=== PATIENT | female | born 1950 | race African-American/Black ===

== ENCOUNTER 2017-09-12 12:51 | Inpatient (IN) | payer MEDICARE, MEDICAID ==
[2017-09-12] VITALS (17 sets, daily range): BP systolic 97–144; BP diastolic 61–92
[~2017-09-12] VITALS: Ht 167.6 cm; Wt 100.3 kg
[~2017-09-12 12:51] MED LIST: ACET-2178 PO; ACET-2708 PO; ARAV10 PO; CALC-1098 PO; CYCL30DR EACHEYE; DULO30CA51 PO; DULO60CA63 PO; ERGO500013 PO; FOLI-43 PO; GABA-290 PO; HYDR12.54 PO; HYDR200T35 PO; NAPR-677 PO; NAPR-681 PO; OXYB5SYR2 PO; POLY15DR17 OP; SULF500T8 PO
[2017-09-12] MEDS ORDERED: METRONIDAZOLE 500 MG PREMIX 100 ML IV SCH (13:15)
[2017-09-12] MEDS ORDERED: IPRATROPIUM/ALBUTEROL 0.5-3(2.5)MG/3ML NEB HHN PRN (13:15)
[2017-09-12] MEDS: RIFAMPIN 300MG CAPSULE PO SCH (15:16)
[2017-09-12] MEDS: CEFEPIME 1,000 MG in DEXTROSE 5% WATER 50 ML IV SCH (16:11)
[2017-09-12] MEDS ORDERED: VANCOMYCIN 1500MG in DEXTROSE 5% WATER 250ML IV NR (17:00)
[2017-09-12] MEDS: DEXT 5%/LACTATED RINGERS 1,000 ML IV SCH ×2 (17:15→22:06)
[2017-09-12] MEDS ORDERED: THROMBIN (BOVINE) 5000 UNITS/VIAL TOP ONE (17:46)
[2017-09-12] MEDS ORDERED: NORMAL SALINE 0.9% 10 ML SYR ONE (17:46)
[2017-09-12] MEDS ORDERED: GELATIN SPONGE,COMPRESSED SZ 100 ONE ×2 (17:47→19:41)
[2017-09-12] MEDS ORDERED: BACITRACIN 50,000 UNITS/VIAL ONE (17:47)
[2017-09-12] MEDS ORDERED: LIDOCAINE HCL/EPINEPHRINE 1%-EPI 1:100,000 20 ML VIAL ONE ×2 (17:47→19:40)
[2017-09-12] MEDS ORDERED: DEXAMETHASONE 10 MG/ML VIAL IV NR (17:48)
[2017-09-12 18:29] LABS: HEMATOCRIT 30.1 % (36.0-48.0); HEMOGLOBIN 10.1 g/dL (12.0-16.0); MEAN CORPUSCULAR HEMOGLOBIN 29.8 pg (28.0-32.0); MEAN CORPUSCULAR VOLUME 89.1 fL (81.0-99.0); PLATELET 189 x1000/uL (130-400); RED BLOOD CELL COUNT 3.38 mill/uL (4.2-5.4); RED CELL DISTRIBUTION WIDTH 15.8 % (11.6-14.6)
[2017-09-12] MEDS ORDERED: IPRATROPIUM/ALBUTEROL 0.5-3(2.5)MG/3ML NEB INH PRN (18:30)
[2017-09-12] MEDS ORDERED: DOCUSATE SODIUM 100MG CAPSULE PO PRN (18:30)
[2017-09-12] MEDS ORDERED: MAGNESIUM/ALUMINUM HYDROXIDE/SIMETHICONE 30ML UDC PO PRN (18:30)
[2017-09-12] MEDS ORDERED: NA PHOS,M-B/NA PHOS,DI-BA ENEMA 118ML PR PRN (18:30)
[2017-09-12] MEDS ORDERED: ONDANSETRON HCL 4MG/2ML VIAL IV PRN (18:30)
[2017-09-12 18:35] LABS: CHLORIDE 103 mEq/L (98-107)
[2017-09-12 18:36] LABS: INR 1.1
[2017-09-12] MEDS ORDERED: PROPOFOL 200MG/20ML VIAL IV ONE (18:52)
[2017-09-12] MEDS ORDERED: ROCURONIUM BROMIDE 10MG/ML VIAL 5ML IV ONE (18:59)
[2017-09-12] MEDS ORDERED: FENTANYL CITRATE/PF 50MCG/ML 2ML VIAL ONE (19:20)
[2017-09-12] MEDS ORDERED: LIDOCAINE HCL/PF 1% 10 MG/ML 5ML VIAL ONE (19:57)
[2017-09-12] MEDS ORDERED: SUCCINYLCHOLINE CHLORIDE 200MG/10ML VIAL IV ONE (19:57)
[2017-09-12] MEDS ORDERED: DEXAMETHASONE 4MG/ML 1ML VIAL IV SCH (20:00)
[2017-09-12] MEDS ORDERED: NICARDIPINE 100 MG in SODIUM CHLORIDE 0.9% 60 ML IV PRN (20:30)
[2017-09-12] MEDS: IPRATROPIUM/ALBUTEROL 0.5-3(2.5)MG/3ML NEB HHN SCH (20:55)
[2017-09-12] MEDS ORDERED: PROPOFOL 10MG/ML 100ML 100 ML IV PRN (21:45)
[2017-09-12 21:50] LABS: BG BASE EXCESS -1.6 mmol/L (-2.0-2.0); BG CARBOXYHEMOGLOBIN 0.3 % (0.5-1.5); BG DEOXYHEMOGLOBIN 0.3 % (0.0-5.0); BG FRACTION INSPIRED OXYGEN 100; BG HCO3 ACT 21.9 mmol/L (22.0-26.0); BG OXYGEN SATURATION 99.7 % (92.0-98.5); BG OXYHEMOGLOBIN 99.4 % (94.0-97.0); BG PCO2 32.7 mmHg (35.0-45.0); BG PH 7.444 (7.350-7.450); BG PO2 477.6 mmHg (75.0-100.0); BG SAMPLE SITE RIGHT RADIAL; BG TIDAL VOLUME(mL) 600 mL; BG TOTAL HEMOGLOBIN 10.7 g/dL (12.0-18.0); BG VENT MODE VENT - A/C; BG VENT RATE 10 set
[2017-09-13] VITALS (75 sets, daily range): BP systolic 94–135; BP diastolic 46–84
[2017-09-13] MEDS: MORPHINE SULFATE 4 MG/ML CPJ (NOT FOR IM USE) IV PRN ×3 (00:19→13:54)
[2017-09-13] MEDS: IPRATROPIUM/ALBUTEROL 0.5-3(2.5)MG/3ML NEB HHN SCH ×4 (01:36→20:31)
[2017-09-13] MEDS: CEFEPIME 1,000 MG in DEXTROSE 5% WATER 50 ML IV SCH ×2 (03:35→17:01)
[2017-09-13] MEDS ORDERED: VANCOMYCIN 1 G PREMIX 200 ML IV SCH (05:00)
[2017-09-13 06:01] LABS: HEMATOCRIT. 30.2 % (36.0-48.0); HEMOGLOBIN. 9.9 g/dL (12.0-16.0); LYMPHOCYTES % 12.1 % (20.0-50.0); MEAN CORPUSCULAR HEMOGLOBIN 29.6 pg (28.0-32.0); MEAN CORPUSCULAR VOLUME 90.2 fL (81.0-99.0); MEAN PLATELET VOLUME 9.2 fl (7.4-10.4); NEUTROPHILS % 79.9 % (40.0-76.0); PLATELET 175 x1000/uL (130-400); RED BLOOD CELL COUNT 3.35 mill/uL (4.2-5.4); RED CELL DISTRIBUTION WIDTH 15.8 % (11.6-14.6)
[2017-09-13 06:14] LABS: CHLORIDE 105 mEq/L (98-107)
[2017-09-13 07:45] LABS: BG BASE EXCESS 1.8 mmol/L (-2.0-2.0); BG CARBOXYHEMOGLOBIN 0.3 % (0.5-1.5); BG DEOXYHEMOGLOBIN 1.2 % (0.0-5.0); BG FRACTION INSPIRED OXYGEN 40; BG HCO3 ACT 25.7 mmol/L (22.0-26.0); BG METHEMOGLOBIN 0.3 % (0.0-1.5); BG OXYGEN SATURATION 98.8 % (92.0-98.5); BG OXYHEMOGLOBIN 98.2 % (94.0-97.0); BG PCO2 37.4 mmHg (35.0-45.0); BG PH 7.455 (7.350-7.450); BG PO2 159.6 mmHg (75.0-100.0); BG SAMPLE SITE RIGHT BRACHIAL; BG TIDAL VOLUME(mL) 600 mL; BG TOTAL HEMOGLOBIN 9.9 g/dL (12.0-18.0); BG VENT MODE VENT - A/C; BG VENT RATE 10 set
[2017-09-13] MEDS: RIFAMPIN 300MG CAPSULE PO SCH (08:20)
[2017-09-13] MEDS: DEXT 5%/LACTATED RINGERS 1,000 ML IV SCH ×2 (08:44→17:01)
[2017-09-13] MEDS: PANTOPRAZOLE SODIUM 40 MG/VIAL IV SCH (13:53)
[2017-09-14] VITALS (50 sets, daily range): BP systolic 96–180; BP diastolic 48–147
[2017-09-14] MEDS ORDERED: VANCOMYCIN 1250MG in DEXTROSE 5% WATER 250ML IV SCH ×2
[2017-09-14] MEDS: IPRATROPIUM/ALBUTEROL 0.5-3(2.5)MG/3ML NEB HHN SCH ×5 (03:02→20:54)
[2017-09-14] MEDS: DEXT 5%/LACTATED RINGERS 1,000 ML IV SCH ×3 (03:54→23:20)
[2017-09-14] MEDS: CEFEPIME 1,000 MG in DEXTROSE 5% WATER 50 ML IV SCH ×2 (03:54→15:09)
[2017-09-14] MEDS: RIFAMPIN 300MG CAPSULE PO SCH (08:14)
[2017-09-14] MEDS: MORPHINE SULFATE 4 MG/ML CPJ (NOT FOR IM USE) IV PRN ×2 (08:14→17:43)
[2017-09-14] MEDS: VANCOMYCIN 1 G PREMIX 200 ML IV SCH ×2 (09:42→17:39)
[2017-09-14] MEDS: PANTOPRAZOLE SODIUM 40 MG/VIAL IV SCH (13:09)
[2017-09-14 15:03] LABS: BG CARBOXYHEMOGLOBIN 0.4 % (0.5-1.5); BG DEOXYHEMOGLOBIN 1.8 % (0.0-5.0); BG FRACTION INSPIRED OXYGEN 30; BG OXYGEN SATURATION 98.2 % (92.0-98.5); BG OXYHEMOGLOBIN 97.8 % (94.0-97.0); BG PH 7.505 (7.350-7.450); BG PO2 110.1 mmHg (75.0-100.0); BG PRESSURE SUPPORT 8; BG SAMPLE SITE RIGHT BRACHIAL; BG TOTAL HEMOGLOBIN 12.7 g/dL (12.0-18.0); BG VENT MODE VENT - CPAP
[2017-09-14] MEDS ORDERED: RACEPINEPHRINE 2.25% 0.5ML NEB VIAL HHN SCH (15:45)
[2017-09-14 16:51] LABS: BASOPHILS % 0.2 % (0.0-2.0); EOSINOPHILS % 2.3 % (0.0-5.0); HEMATOCRIT. 30.4 % (36.0-48.0); LYMPHOCYTES % 24.5 % (20.0-50.0); MEAN CORPUSCULAR HEMOGLOBIN 29.5 pg (28.0-32.0); MEAN CORPUSCULAR VOLUME 89.6 fL (81.0-99.0); MEAN PLATELET VOLUME 8.9 fl (7.4-10.4); MONOCYTES % 4.8 % (2.0-8.0); NEUTROPHILS % 68.2 % (40.0-76.0); PLATELET 176 x1000/uL (130-400); RED CELL DISTRIBUTION WIDTH 15.5 % (11.6-14.6)
[2017-09-14 16:56] LABS: CHLORIDE 105 mEq/L (98-107)
[2017-09-14 18:06] LABS: BG BASE EXCESS 3.2 mmol/L (-2.0-2.0); BG CARBOXYHEMOGLOBIN 0.3 % (0.5-1.5); BG DEOXYHEMOGLOBIN 7.7 % (0.0-5.0); BG FRACTION INSPIRED OXYGEN 21; BG HCO3 ACT 26.4 mmol/L (22.0-26.0); BG METHEMOGLOBIN 0.2 % (0.0-1.5); BG OXYGEN SATURATION 92.3 % (92.0-98.5); BG OXYHEMOGLOBIN 91.8 % (94.0-97.0); BG PCO2 35.1 mmHg (35.0-45.0); BG PH 7.494 (7.350-7.450); BG PO2 64.8 mmHg (75.0-100.0); BG SAMPLE SITE RIGHT BRACHIAL; BG TOTAL HEMOGLOBIN 10.4 g/dL (12.0-18.0); BG VENT MODE ROOM AIR
[2017-09-14] MEDS ORDERED: POTASSIUM CHLORIDE INJ 40 MEQ in DEXT 5% WATER 250 ML IV NR (18:30)
[2017-09-15] VITALS (47 sets, daily range): BP systolic 87–153; BP diastolic 40–110
[2017-09-15] MEDS: VANCOMYCIN 1 G PREMIX 200 ML IV SCH ×3 (01:02→17:40)
[2017-09-15] MEDS: IPRATROPIUM/ALBUTEROL 0.5-3(2.5)MG/3ML NEB HHN SCH ×4 (03:01→20:10)
[2017-09-15] MEDS: CEFEPIME 1,000 MG in DEXTROSE 5% WATER 50 ML IV SCH (03:04)
[2017-09-15 08:17] LABS: BG BASE EXCESS 3.3 mmol/L (-2.0-2.0); BG CARBOXYHEMOGLOBIN 0.2 % (0.5-1.5); BG DEOXYHEMOGLOBIN 1.7 % (0.0-5.0); BG FRACTION INSPIRED OXYGEN 28; BG HCO3 ACT 26.3 mmol/L (22.0-26.0); BG METHEMOGLOBIN 0.2 % (0.0-1.5); BG OXYGEN SATURATION 98.3 % (92.0-98.5); BG OXYHEMOGLOBIN 97.9 % (94.0-97.0); BG PCO2 34.1 mmHg (35.0-45.0); BG PH 7.505 (7.350-7.450); BG PO2 121.1 mmHg (75.0-100.0); BG SAMPLE SITE RIGHT BRACHIAL; BG TOTAL HEMOGLOBIN 9.7 g/dL (12.0-18.0); BG VENT MODE NASAL CANNULA
[2017-09-15] MEDS: DEXT 5%/LACTATED RINGERS 1,000 ML IV SCH ×3 (09:15→17:40)
[2017-09-15] MEDS: RIFAMPIN 300MG CAPSULE PO SCH (09:25)
[2017-09-15] MEDS: PANTOPRAZOLE SODIUM 40 MG/VIAL IV SCH (11:55)
[2017-09-15] MEDS: HYDROCODONE/ACETAMINOPHEN 10/325MG TABLET PO PRN (11:56)
[2017-09-15] MEDS ORDERED: POTASSIUM CHLORIDE INJ 40 MEQ in DEXT 5% WATER 250 ML IV ONE (12:00)
[2017-09-15] MEDS: CEPHALEXIN 500MG CAPSULE PO SCH ×2 (17:40→23:08)
[2017-09-16] VITALS (47 sets, daily range): BP systolic 97–149; BP diastolic 52–89
[2017-09-16] MEDS: VANCOMYCIN 1 G PREMIX 200 ML IV SCH ×3 (01:11→18:02)
[2017-09-16] MEDS: IPRATROPIUM/ALBUTEROL 0.5-3(2.5)MG/3ML NEB HHN SCH ×4 (02:03→20:14)
[2017-09-16] MEDS: DEXT 5%/LACTATED RINGERS 1,000 ML IV SCH ×3 (05:11→18:02)
[2017-09-16] MEDS: CEPHALEXIN 500MG CAPSULE PO SCH ×3 (05:11→18:02)
[2017-09-16 05:33] LABS: BASOPHILS % 0.4 % (0.0-2.0); EOSINOPHILS % 6.7 % (0.0-5.0); HEMATOCRIT. 29.9 % (36.0-48.0); HEMOGLOBIN. 9.9 g/dL (12.0-16.0); MEAN CORPUSCULAR HEMOGLOBIN 29.6 pg (28.0-32.0); MEAN CORPUSCULAR VOLUME 89.5 fL (81.0-99.0); MEAN PLATELET VOLUME 8.8 fl (7.4-10.4); NEUTROPHILS % 62.9 % (40.0-76.0); PLATELET 134 x1000/uL (130-400); RED BLOOD CELL COUNT 3.34 mill/uL (4.2-5.4); RED CELL DISTRIBUTION WIDTH 15.7 % (11.6-14.6)
[2017-09-16 05:46] LABS: CHLORIDE 102 mEq/L (98-107)
[2017-09-16] MEDS ORDERED: POTASSIUM CHLORIDE INJ 40 MEQ in DEXT 5% WATER 250 ML IV ONE (08:15)
[2017-09-16] MEDS: KCL 20MEQ/100ML PREMIX 100 ML IV SCH ×3 (09:45→15:56)
[2017-09-16] MEDS: PANTOPRAZOLE SODIUM 40 MG/VIAL IV SCH (11:43)
[2017-09-16] MEDS: RIFAMPIN 300MG CAPSULE PO SCH (11:43)
[2017-09-16] MEDS ORDERED: LIDOCAINE HCL 1% 20ML VIAL (Pyxis) INJ ONE (14:08)
[2017-09-17] VITALS (48 sets, daily range): BP systolic 96–147; BP diastolic 54–82
[2017-09-17] MEDS: CEPHALEXIN 500MG CAPSULE PO SCH ×4 (00:40→17:58)
[2017-09-17] MEDS: IPRATROPIUM/ALBUTEROL 0.5-3(2.5)MG/3ML NEB HHN SCH ×4 (02:07→20:08)
[2017-09-17] MEDS: DEXT 5%/LACTATED RINGERS 1,000 ML IV SCH ×2 (02:30→10:17)
[2017-09-17] MEDS: VANCOMYCIN 1 G PREMIX 200 ML IV SCH ×3 (02:32→17:58)
[2017-09-17 05:32] LABS: BASOPHILS % 0.3 % (0.0-2.0); HEMATOCRIT. 28.9 % (36.0-48.0); HEMOGLOBIN. 9.8 g/dL (12.0-16.0); LYMPHOCYTES % 33.4 % (20.0-50.0); MEAN CORPUSCULAR HEMOGLOBIN 29.9 pg (28.0-32.0); MEAN CORPUSCULAR VOLUME 88.4 fL (81.0-99.0); MEAN PLATELET VOLUME 8.5 fl (7.4-10.4); MONOCYTES % 5.6 % (2.0-8.0); NEUTROPHILS % 54.7 % (40.0-76.0); PLATELET 131 x1000/uL (130-400); RED BLOOD CELL COUNT 3.27 mill/uL (4.2-5.4); RED CELL DISTRIBUTION WIDTH 15.2 % (11.6-14.6)
[2017-09-17 05:38] LABS: CHLORIDE 101 mEq/L (98-107)
[2017-09-17 05:57] LABS: CREATINE KINASE 69 IU/L (26-192)
[2017-09-17] MEDS: RIFAMPIN 300MG CAPSULE PO SCH (08:44)
[2017-09-17] MEDS ORDERED: POTASSIUM CHLORIDE 20MEQ/PACKET PO SCH (10:00)
[2017-09-17] MEDS: PANTOPRAZOLE SODIUM 40 MG/VIAL IV SCH (12:51)
[2017-09-18] VITALS: BP 118/80
[2017-09-18] MEDS: CEPHALEXIN 500MG CAPSULE PO SCH ×5 (00:44→23:07)
[2017-09-18] MEDS: VANCOMYCIN 1 G PREMIX 200 ML IV SCH (01:07)
[2017-09-18] MEDS: IPRATROPIUM/ALBUTEROL 0.5-3(2.5)MG/3ML NEB HHN SCH ×4 (02:36→20:14)
[2017-09-18 04:00] VITALS: BP 117/81
[2017-09-18 08:00] VITALS: BP 114/78
[2017-09-18] MEDS: POTASSIUM CHLORIDE 20MEQ/PACKET PO SCH (09:21)
[2017-09-18] MEDS: RIFAMPIN 300MG CAPSULE PO SCH (09:21)
[2017-09-18 12:00] VITALS: BP 101/57
[2017-09-18] MEDS: NA PHOS,M-B/NA PHOS,DI-BA ENEMA 118ML PR SCH ×2 (13:30→17:54)
[2017-09-18] MEDS: VANCOMYCIN 750 MG PREMIX 150 ML IV SCH ×2 (14:28→22:31)
[2017-09-18] MEDS: PANTOPRAZOLE SODIUM 40 MG/VIAL IV SCH (14:28)
[2017-09-18 15:54] LABS: BASOPHILS % 0.6 % (0.0-2.0); EOSINOPHILS % 4.1 % (0.0-5.0); HEMATOCRIT. 28.2 % (36.0-48.0); HEMOGLOBIN. 9.4 g/dL (12.0-16.0); LYMPHOCYTES % 32.4 % (20.0-50.0); MEAN CORPUSCULAR HEMOGLOBIN 29.7 pg (28.0-32.0); MEAN PLATELET VOLUME 8.5 fl (7.4-10.4); MONOCYTES % 3.7 % (2.0-8.0); NEUTROPHILS % 59.2 % (40.0-76.0); PLATELET 131 x1000/uL (130-400); RED BLOOD CELL COUNT 3.17 mill/uL (4.2-5.4); RED CELL DISTRIBUTION WIDTH 15.4 % (11.6-14.6)
[2017-09-18 16:00] VITALS: BP 110/68
[2017-09-18] MEDS: DOCUSATE SODIUM 100MG CAPSULE PO SCH (17:54)
[2017-09-18] MEDS: ACETAMINOPHEN 325MG TABLET PO PRN (17:56)
[2017-09-18 20:00] VITALS: BP 109/62
[2017-09-18 20:47] LABS: CHLORIDE 103 mEq/L (98-107)
[2017-09-18] MEDS: POLYETHYLENE GLYCOL 3350 (17GM) 1 DOSE PACK PO SCH (22:31)
[2017-09-19] VITALS: BP 108/60
[2017-09-19] MEDS: IPRATROPIUM/ALBUTEROL 0.5-3(2.5)MG/3ML NEB HHN SCH ×4 (03:13→20:48)
[2017-09-19 04:00] VITALS: BP 113/67
[2017-09-19] MEDS: CEPHALEXIN 500MG CAPSULE PO SCH ×3 (05:29→17:25)
[2017-09-19] MEDS: VANCOMYCIN 750 MG PREMIX 150 ML IV SCH ×2 (05:29→13:17)
[2017-09-19 07:05] LABS: BASOPHILS % 0.7 % (0.0-2.0); HEMATOCRIT. 27.6 % (36.0-48.0); HEMOGLOBIN. 9.1 g/dL (12.0-16.0); LYMPHOCYTES % 32.2 % (20.0-50.0); MEAN CORPUSCULAR HEMOGLOBIN 29.3 pg (28.0-32.0); MEAN CORPUSCULAR VOLUME 89.2 fL (81.0-99.0); MEAN PLATELET VOLUME 8.8 fl (7.4-10.4); MONOCYTES % 5.3 % (2.0-8.0); NEUTROPHILS % 57.8 % (40.0-76.0); PLATELET 108 x1000/uL (130-400); RED CELL DISTRIBUTION WIDTH 15.6 % (11.6-14.6)
[2017-09-19 08:00] VITALS: BP 112/67
[2017-09-19] MEDS: BISACODYL 10MG SUPP PR SCH (09:00)
[2017-09-19] MEDS: RIFAMPIN 300MG CAPSULE PO SCH (10:42)
[2017-09-19] MEDS: DOCUSATE SODIUM 100MG CAPSULE PO SCH ×2 (10:43→17:25)
[2017-09-19] MEDS: POTASSIUM CHLORIDE 20MEQ/PACKET PO SCH (10:43)
[2017-09-19] MEDS ORDERED: LACTULOSE 20G/30ML UDC PO PRN (11:45)
[2017-09-19 12:00] VITALS: BP 102/67
[2017-09-19] MEDS: PANTOPRAZOLE SODIUM 40 MG/VIAL IV SCH (12:35)
[2017-09-19 16:00] VITALS: BP 108/67
[2017-09-19 20:00] VITALS: BP 124/69
[2017-09-19] MEDS: VANCOMYCIN 1500MG in DEXTROSE 5% WATER 250ML IV SCH (21:32)
[2017-09-19] MEDS: POLYETHYLENE GLYCOL 3350 (17GM) 1 DOSE PACK PO SCH (21:32)
[2017-09-20] VITALS: BP 111/61
[2017-09-20] MEDS: MORPHINE SULFATE 4 MG/ML CPJ (NOT FOR IM USE) IV PRN (00:09)
[2017-09-20] MEDS: IPRATROPIUM/ALBUTEROL 0.5-3(2.5)MG/3ML NEB HHN SCH ×4 (00:32→20:58)
[2017-09-20 04:00] VITALS: BP 101/64
[2017-09-20 08:00] VITALS: BP 123/70
[2017-09-20] MEDS: POTASSIUM CHLORIDE 20MEQ/PACKET PO SCH (08:26)
[2017-09-20] MEDS: BISACODYL 10MG SUPP PR SCH (08:26)
[2017-09-20] MEDS: RIFAMPIN 300MG CAPSULE PO SCH (08:26)
[2017-09-20] MEDS: DOCUSATE SODIUM 100MG CAPSULE PO SCH ×2 (08:26→17:52)
[2017-09-20] MEDS: VANCOMYCIN 1500MG in DEXTROSE 5% WATER 250ML IV SCH ×2 (10:16→23:11)
[2017-09-20] MEDS: PANTOPRAZOLE SODIUM 40 MG/VIAL IV SCH (11:08)
[2017-09-20 12:00] VITALS: BP 125/69
[2017-09-20] MEDS ORDERED: NA PHOS,M-B/NA PHOS,DI-BA ENEMA 118ML PR PRN (14:45)
[2017-09-20] MEDS ORDERED: SORBITOL 70% SOLN 30ML PO NR (15:00)
[2017-09-20] MEDS ORDERED: NA PHOS,M-B/NA PHOS,DI-BA ENEMA 118ML PR NR (15:00)
[2017-09-20 16:00] VITALS: BP 127/72
[2017-09-20 19:25] LABS: CHLORIDE 107 mEq/L (98-107)
[2017-09-20 20:00] VITALS: BP 116/72
[2017-09-20] MEDS: POLYETHYLENE GLYCOL 3350 (17GM) 1 DOSE PACK PO SCH (22:00)
[2017-09-21] VITALS: BP 104/71
[2017-09-21] MEDS: IPRATROPIUM/ALBUTEROL 0.5-3(2.5)MG/3ML NEB HHN SCH ×4 (01:04→21:14)
[2017-09-21 04:00] VITALS: BP 125/76
[2017-09-21 08:00] VITALS: BP 127/79
[2017-09-21] MEDS: DOCUSATE SODIUM 100MG CAPSULE PO SCH ×2 (08:55→17:00)
[2017-09-21] MEDS: BISACODYL 10MG SUPP PR SCH (08:55)
[2017-09-21] MEDS: POTASSIUM CHLORIDE 20MEQ/PACKET PO SCH (08:55)
[2017-09-21] MEDS: RIFAMPIN 300MG CAPSULE PO SCH (08:55)
[2017-09-21] MEDS: HYDROCODONE/ACETAMINOPHEN 10/325MG TABLET PO PRN ×2 (08:59→17:28)
[2017-09-21] MEDS: VANCOMYCIN 1500MG in DEXTROSE 5% WATER 250ML IV SCH (09:00)
[2017-09-21 12:00] VITALS: BP 113/79
[2017-09-21] MEDS: PANTOPRAZOLE SODIUM 40 MG/VIAL IV SCH (12:51)
[2017-09-21 16:00] VITALS: BP 105/69
[2017-09-21 20:00] VITALS: BP 98/68
[2017-09-21] MEDS: POLYETHYLENE GLYCOL 3350 (17GM) 1 DOSE PACK PO SCH (20:30)
[2017-09-21] MEDS: VANCOMYCIN 1250MG in DEXTROSE 5% WATER 250ML IV SCH (20:49)
[2017-09-22] VITALS: BP 106/69
[2017-09-22] MEDS ORDERED: HYDROCODONE/ACETAMINOPHEN 10/325MG TABLET PO PRN (01:00)
[2017-09-22] MEDS: IPRATROPIUM/ALBUTEROL 0.5-3(2.5)MG/3ML NEB HHN SCH ×4 (01:04→21:45)
[2017-09-22 04:00] VITALS: BP 105/69
[2017-09-22 08:00] VITALS: BP 104/69
[2017-09-22] MEDS ORDERED: NA PHOS,M-B/NA PHOS,DI-BA ENEMA 118ML PR SCH (09:00)
[2017-09-22 09:30] LABS: BASOPHILS % 0.8 % (0.0-2.0); HEMATOCRIT. 28.8 % (36.0-48.0); HEMOGLOBIN. 9.5 g/dL (12.0-16.0); LYMPHOCYTES % 42.2 % (20.0-50.0); MEAN CORPUSCULAR HEMOGLOBIN 29.2 pg (28.0-32.0); MEAN CORPUSCULAR VOLUME 88.8 fL (81.0-99.0); MEAN PLATELET VOLUME 7.6 fl (7.4-10.4); PLATELET 190 x1000/uL (130-400); RED BLOOD CELL COUNT 3.24 mill/uL (4.2-5.4); RED CELL DISTRIBUTION WIDTH 15.9 % (11.6-14.6)
[2017-09-22 09:37] LABS: CHLORIDE 105 mEq/L (98-107)
[2017-09-22] MEDS: POTASSIUM CHLORIDE 20MEQ/PACKET PO SCH (09:47)
[2017-09-22] MEDS: VANCOMYCIN 1250MG in DEXTROSE 5% WATER 250ML IV SCH ×2 (09:47→22:17)
[2017-09-22] MEDS: DOCUSATE SODIUM 100MG CAPSULE PO SCH ×2 (09:47→17:21)
[2017-09-22] MEDS: BISACODYL 10MG SUPP PR SCH (09:47)
[2017-09-22] MEDS: RIFAMPIN 300MG CAPSULE PO SCH (09:48)
[2017-09-22] MEDS: PANTOPRAZOLE SODIUM 40 MG/VIAL IV SCH (11:15)
[2017-09-22 16:00] VITALS: BP 103/66
[2017-09-22 20:00] VITALS: BP 111/65
[2017-09-22] MEDS: POLYETHYLENE GLYCOL 3350 (17GM) 1 DOSE PACK PO SCH (21:30)
[2017-09-23] VITALS: BP 95/51
[2017-09-23] MEDS: IPRATROPIUM/ALBUTEROL 0.5-3(2.5)MG/3ML NEB HHN SCH ×2 (02:21→07:26)
[2017-09-23 04:00] VITALS: BP 96/62
[2017-09-23 07:05] LABS: BASOPHILS % 0.6 % (0.0-2.0); EOSINOPHILS % 3.5 % (0.0-5.0); HEMATOCRIT. 28.1 % (36.0-48.0); HEMOGLOBIN. 9.3 g/dL (12.0-16.0); LYMPHOCYTES % 43.2 % (20.0-50.0); MEAN CORPUSCULAR HEMOGLOBIN 29.2 pg (28.0-32.0); MEAN CORPUSCULAR VOLUME 88.3 fL (81.0-99.0); MEAN PLATELET VOLUME 7.7 fl (7.4-10.4); MONOCYTES % 8.5 % (2.0-8.0); NEUTROPHILS % 44.2 % (40.0-76.0); PLATELET 231 x1000/uL (130-400); RED BLOOD CELL COUNT 3.18 mill/uL (4.2-5.4)
[2017-09-23 07:37] LABS: CHLORIDE 105 mEq/L (98-107)
[2017-09-23 08:00] VITALS: BP 103/64
[2017-09-23] MEDS: POTASSIUM CHLORIDE 20MEQ/PACKET PO SCH (08:38)
[2017-09-23] MEDS: RIFAMPIN 300MG CAPSULE PO SCH (08:38)
[2017-09-23] MEDS: DOCUSATE SODIUM 100MG CAPSULE PO SCH ×2 (08:38→17:00)
[2017-09-23] MEDS: VANCOMYCIN 1250MG in DEXTROSE 5% WATER 250ML IV SCH ×2 (08:44→20:36)
[2017-09-23] MEDS: BISACODYL 10MG SUPP PR SCH (08:48)
[2017-09-23 12:00] VITALS: BP 93/57
[2017-09-23] MEDS: PANTOPRAZOLE SODIUM 40 MG/VIAL IV SCH (12:14)
[2017-09-23] MEDS: ACETAMINOPHEN 325MG TABLET PO PRN (13:06)
[2017-09-23 16:00] VITALS: BP 95/64
[2017-09-23 20:00] VITALS: BP 109/69
[2017-09-23] MEDS: POLYETHYLENE GLYCOL 3350 (17GM) 1 DOSE PACK PO SCH (20:36)
[2017-09-24] VITALS: BP 103/65
[2017-09-24 04:00] VITALS: BP 103/65
[2017-09-24] MEDS: ACETAMINOPHEN 325MG TABLET PO PRN (04:01)
[2017-09-24 08:00] VITALS: BP 101/70
[2017-09-24] MEDS: RIFAMPIN 300MG CAPSULE PO SCH (08:25)
[2017-09-24] MEDS: VANCOMYCIN 1250MG in DEXTROSE 5% WATER 250ML IV SCH ×2 (08:26→21:56)
[2017-09-24] MEDS: DOCUSATE SODIUM 100MG CAPSULE PO SCH ×2 (08:26→18:02)
[2017-09-24] MEDS: POTASSIUM CHLORIDE 20MEQ/PACKET PO SCH (08:26)
[2017-09-24 12:00] VITALS: BP 122/76
[2017-09-24] MEDS: PANTOPRAZOLE SODIUM 40 MG/VIAL IV SCH (13:23)
[2017-09-24 16:00] VITALS: BP 139/88
[2017-09-24] MEDS ORDERED: BISACODYL 10MG SUPP PR PRN (16:00)
[2017-09-24 20:00] VITALS: BP 105/72
[2017-09-24] MEDS: POLYETHYLENE GLYCOL 3350 (17GM) 1 DOSE PACK PO SCH (21:56)
[2017-09-24] MEDS: LACTULOSE 20G/30ML UDC PO SCH ×2 (21:56→22:00)
[2017-09-25] VITALS: BP 104/62
[2017-09-25 04:00] VITALS: BP 101/59
[2017-09-25] MEDS: ACETAMINOPHEN 325MG TABLET PO PRN (07:28)
[2017-09-25 08:00] VITALS: BP 118/72
[2017-09-25] MEDS: VANCOMYCIN 1250MG in DEXTROSE 5% WATER 250ML IV SCH ×2 (09:19→21:31)
[2017-09-25] MEDS: POTASSIUM CHLORIDE 20MEQ/PACKET PO SCH (09:19)
[2017-09-25] MEDS: RIFAMPIN 300MG CAPSULE PO SCH (09:20)
[2017-09-25] MEDS: DOCUSATE SODIUM 100MG CAPSULE PO SCH ×2 (09:20→17:39)
[2017-09-25 12:00] VITALS: BP 119/74
[2017-09-25] MEDS: PANTOPRAZOLE SODIUM 40 MG/VIAL IV SCH (13:24)
[2017-09-25 16:00] VITALS: BP 118/67
[2017-09-25 20:00] VITALS: BP 110/78
[2017-09-25] MEDS: POLYETHYLENE GLYCOL 3350 (17GM) 1 DOSE PACK PO SCH (21:31)
[2017-09-26] VITALS: BP 114/73
[2017-09-26] MEDS: ACETAMINOPHEN 325MG TABLET PO PRN ×4 (00:37→23:43)
[2017-09-26 04:00] VITALS: BP 99/62
[2017-09-26 08:00] VITALS: BP 122/75
[2017-09-26] MEDS: VANCOMYCIN 1250MG in DEXTROSE 5% WATER 250ML IV SCH ×2 (08:41→21:55)
[2017-09-26] MEDS: DOCUSATE SODIUM 100MG CAPSULE PO SCH ×2 (08:42→16:22)
[2017-09-26] MEDS: RIFAMPIN 300MG CAPSULE PO SCH (08:42)
[2017-09-26] MEDS: POTASSIUM CHLORIDE 20MEQ/PACKET PO SCH (08:44)
[2017-09-26] MEDS: PANTOPRAZOLE SODIUM 40 MG/VIAL IV SCH (12:55)
[2017-09-26 16:00] VITALS: BP 128/64
[2017-09-26 20:00] VITALS: BP 95/54
[2017-09-26] MEDS: POLYETHYLENE GLYCOL 3350 (17GM) 1 DOSE PACK PO SCH (21:55)
[2017-09-26] MEDS: LACTULOSE 20G/30ML UDC PO SCH (21:55)
[2017-09-27] VITALS: BP 135/69
[2017-09-27 04:00] VITALS: BP 110/76
[2017-09-27] MEDS: ACETAMINOPHEN 325MG TABLET PO PRN ×3 (05:50→22:19)
[2017-09-27 08:00] VITALS: BP 100/62
[2017-09-27] MEDS: DOCUSATE SODIUM 100MG CAPSULE PO SCH ×2 (08:37→18:08)
[2017-09-27] MEDS: RIFAMPIN 300MG CAPSULE PO SCH (08:38)
[2017-09-27] MEDS: VANCOMYCIN 1250MG in DEXTROSE 5% WATER 250ML IV SCH ×2 (08:38→21:05)
[2017-09-27] MEDS: POTASSIUM CHLORIDE 20MEQ/PACKET PO SCH (08:38)
[2017-09-27 12:00] VITALS: BP 110/69
[2017-09-27] MEDS: PANTOPRAZOLE SODIUM 40 MG/VIAL IV SCH (12:36)
[2017-09-27 16:00] VITALS: BP 108/66
[2017-09-27 20:00] VITALS: BP 120/60
[2017-09-27] MEDS: POLYETHYLENE GLYCOL 3350 (17GM) 1 DOSE PACK PO SCH (21:50)
[2017-09-27] MEDS: LACTULOSE 20G/30ML UDC PO SCH (21:50)
[2017-09-28] VITALS: BP 99/68
[2017-09-28 04:00] VITALS: BP 124/86
[2017-09-28 06:31] LABS: BASOPHILS % 0.6 % (0.0-2.0); EOSINOPHILS % 5.5 % (0.0-5.0); HEMATOCRIT. 31.8 % (36.0-48.0); HEMOGLOBIN. 10.5 g/dL (12.0-16.0); LYMPHOCYTES % 43.1 % (20.0-50.0); MEAN CORPUSCULAR HEMOGLOBIN 29.3 pg (28.0-32.0); MEAN CORPUSCULAR VOLUME 88.7 fL (81.0-99.0); MEAN PLATELET VOLUME 7.2 fl (7.4-10.4); MONOCYTES % 9.9 % (2.0-8.0); NEUTROPHILS % 40.9 % (40.0-76.0); PLATELET 290 x1000/uL (130-400); RED BLOOD CELL COUNT 3.59 mill/uL (4.2-5.4); RED CELL DISTRIBUTION WIDTH 16.4 % (11.6-14.6)
[2017-09-28 07:05] LABS: CHLORIDE 105 mEq/L (98-107)
[2017-09-28 08:00] VITALS: BP 118/72
[2017-09-28 08:20] LABS: CREATINE KINASE 25 IU/L (26-192)
[2017-09-28] MEDS: VANCOMYCIN 1250MG in DEXTROSE 5% WATER 250ML IV SCH (09:27)
[2017-09-28] MEDS: POTASSIUM CHLORIDE 20MEQ/PACKET PO SCH (09:27)
[2017-09-28] MEDS: DOCUSATE SODIUM 100MG CAPSULE PO SCH (09:27)
[2017-09-28] MEDS: RIFAMPIN 300MG CAPSULE PO SCH (09:27)
[2017-09-28 12:00] VITALS: BP 103/67
[2017-09-28] MEDS: PANTOPRAZOLE SODIUM 40 MG/VIAL IV SCH (12:57)
[2017-09-28 13:24] VITALS: BP 103/67
== END 2017-09-28 13:56 | disposition short-term general hospital (02) | DRG 856 ==
LOC: 3WST 12:51 → MICUSO 21:26 → 6EST 09-17 23:10
PROVIDERS: ADMIT Internal Medicine; ATTEND Internal Medicine
PROC: 5A1945Z Respiratory Ventilation, 24-96 Consecutive Hours (ICD-10-PCS; 2017-09-12)
PROC: 009U0ZZ Drainage of Spinal Canal, Open Approach (ICD-10-PCS; principal; 2017-09-12 18:00)
PROC: 02HV33Z Insertion of Infusion Device into Superior Vena Cava, Percutaneous Approach (ICD-10-PCS; 2017-09-16)
PROC: B548ZZA Ultrasonography of Superior Vena Cava, Guidance (ICD-10-PCS; 2017-09-16)
DX: T81.4XXA Infection following a procedure, initial encounter (principal); L89.893 Pressure ulcer of other site, stage 3; L89.323 Pressure ulcer of left buttock, stage 3; L89.313 Pressure ulcer of right buttock, stage 3; A41.02 Sepsis due to Methicillin resistant Staphylococcus aureus; J69.0 Pneumonitis due to inhalation of food and vomit; G82.50 Quadriplegia, unspecified; J96.00 Acute respiratory failure, unspecified whether with hypoxia or hypercapnia; E43 Unspecified severe protein-calorie malnutrition; G92 Toxic encephalopathy; T83.511A Infection and inflammatory reaction due to indwelling urethral catheter, initial encounter; N39.0 Urinary tract infection, site not specified; G95.89 Other specified diseases of spinal cord; K59.2 Neurogenic bowel, not elsewhere classified; L02.11 Cutaneous abscess of neck; T81.32XA Disruption of internal operation (surgical) wound, not elsewhere classified, initial encounter; B95.62 Methicillin resistant Staphylococcus aureus infection as the cause of diseases classified elsewhere; M48.02 Spinal stenosis, cervical region; M32.9 Systemic lupus erythematosus, unspecified; R32 Unspecified urinary incontinence; R00.1 Bradycardia, unspecified; B96.1 Klebsiella pneumoniae [K. pneumoniae] as the cause of diseases classified elsewhere; D50.9 Iron deficiency anemia, unspecified; E66.9 Obesity, unspecified; E78.00 Pure hypercholesterolemia, unspecified; E87.6 Hypokalemia; I10 Essential (primary) hypertension; K59.00 Constipation, unspecified; R13.10 Dysphagia, unspecified; I95.9 Hypotension, unspecified; Z60.2 Problems related to living alone; B96.89 Other specified bacterial agents as the cause of diseases classified elsewhere; L89.152 Pressure ulcer of sacral region, stage 2; M48.061 Spinal stenosis, lumbar region without neurogenic claudication; D63.8 Anemia in other chronic diseases classified elsewhere; M21.962 Unspecified acquired deformity of left lower leg; M51.34 Other intervertebral disc degeneration, thoracic region; Y84.6 Urinary catheterization as the cause of abnormal reaction of the patient, or of later complication, without mention of misadventure at the time of the procedure; Y83.8 Other surgical procedures as the cause of abnormal reaction of the patient, or of later complication, without mention of misadventure at the time of the procedure; Y92.89 Other specified places as the place of occurrence of the external cause; Z82.49 Family history of ischemic heart disease and other diseases of the circulatory system; Z86.73 Personal history of transient ischemic attack (TIA), and cerebral infarction without residual deficits; Z79.899 Other long term (current) drug therapy; Z87.891 Personal history of nicotine dependence; Z71.3 Dietary counseling and surveillance; Z86.14 Personal history of Methicillin resistant Staphylococcus aureus infection; Z98.1 Arthrodesis status; Z68.35 Body mass index [BMI] 35.0-35.9, adult
CPT/HCPCS: 36415; 36569; 36600; 71045; 72141; 74018; 76937; 80048; 80053; 80076; 80202; 82375; 82550; 82805; 83735; 84478; 85025; 85027; 85610; 85651; 87040; 87070; 87077; 87205; 93005; 93306; 94002; 94003; 94640; 95925; 95926; 95928; 95929; 97110; 97112; 97163; 97166; 97530; 97535; A4216; C1725; C9113; J0330; J0692; J1100; J2270; J2704; J3010; J3370; J3480; J3490; J7040; J7050; J7060; J7121; J7620

== ENCOUNTER → 2018-11-27 | Outpatient (CLI) | payer MEDICARE, MEDICAID | END | disposition home or self-care (01) | LOC: RAD 12:18 | PROVIDERS: ATTEND Neurological Surgery | DX: M47.813 Spondylosis without myelopathy or radiculopathy, cervicothoracic region (principal); G95.89 Other specified diseases of spinal cord; M99.11 Subluxation complex (vertebral) of cervical region | CPT/HCPCS: 72052; 72141 ==

== ENCOUNTER → 2019-09-29 | Outpatient (CLI) | payer MEDICARE, MEDICAID | END | disposition home or self-care (01) | LOC: MRI 10:49 | PROVIDERS: ATTEND Neurological Surgery | DX: M48.02 Spinal stenosis, cervical region (principal); M43.22 Fusion of spine, cervical region | CPT/HCPCS: 72141 ==

== ENCOUNTER → 2020-02-09 | Outpatient (CLI) | payer MEDICARE, MEDICAID | END | disposition home or self-care (01) | LOC: MRI 07:35 | PROVIDERS: ATTEND Neurological Surgery | DX: M47.816 Spondylosis without myelopathy or radiculopathy, lumbar region (principal); M48.061 Spinal stenosis, lumbar region without neurogenic claudication | CPT/HCPCS: 72148 ==

== ENCOUNTER → 2020-09-01 | Outpatient (CLI) | payer MEDICARE, MEDICAID | END | disposition home or self-care (01) | LOC: MRI 12:54 | PROVIDERS: ATTEND Neurological Surgery | DX: M51.37 Other intervertebral disc degeneration, lumbosacral region (principal); M48.07 Spinal stenosis, lumbosacral region; M51.26 Other intervertebral disc displacement, lumbar region; M25.78 Osteophyte, vertebrae; M89.38 Hypertrophy of bone, other site | CPT/HCPCS: 72148 ==

== ENCOUNTER 2020-10-10 05:39 | Inpatient (IN) | payer MEDICARE, MEDICAID ==
[~2020-10-10] VITALS: Ht 165.1 cm; Wt 83.5 kg
[2020-10-10] VITALS (34 sets, daily range): BP systolic 81–116; BP diastolic 37–82
[~2020-10-10 05:39] MED LIST changes: -ACET-2178 PO; +AMLO2.5T45 PO; -ARAV10 PO; +ASPI-1497 PO; +ATOR10TA PO; -CALC-1098 PO; -CYCL30DR EACHEYE; -DULO30CA51 PO; -DULO60CA63 PO; +DULO60CA64 PO; -HYDR12.54 PO; -HYDR200T35 PO; +LEFL20TA17 PO; -NAPR-677 PO; -NAPR-681 PO; +NAPR500T7 PO; -OXYB5SYR2 PO; -POLY15DR17 OP; +[UNRECOGNIZED DRUG - REMARK] PO
[2020-10-10] MEDS ORDERED: GENTAMICIN SULF 40MG/ML 2ML VIAL ONE (06:04)
[2020-10-10] MEDS ORDERED: THROMBIN (BOVINE) 5000 UNITS/VIAL TOP ONE (06:04)
[2020-10-10] MEDS ORDERED: LIDOCAINE HCL/EPINEPHRINE 1%-EPI 1:100,000 10 ML VIAL ONE (06:04)
[2020-10-10] MEDS ORDERED: ACETAMINOPHEN 500MG TABLET ONE (06:40)
[2020-10-10] MEDS: LACTATED RINGERS 1,000 ML IV SCH ×2 (06:40→11:45)
[2020-10-10] MEDS ORDERED: PROPOFOL 200MG/20ML VIAL IV ONE (07:24)
[2020-10-10] MEDS ORDERED: LIDOCAINE HCL 2% JELLY 5ML ONE (07:28)
[2020-10-10] MEDS ORDERED: VECURONIUM BROMIDE 10 MG/VIAL IV ONE (07:28)
[2020-10-10] MEDS ORDERED: LIDOCAINE HCL/PF 1% 10 MG/ML 5ML VIAL ONE (07:28)
[2020-10-10] MEDS ORDERED: ONDANSETRON HCL 4MG/2ML INJ IV PRN (07:30)
[2020-10-10] MEDS ORDERED: NICARDIPINE 100 MG in SODIUM CHLORIDE 0.9% 60 ML IV PRN (07:30)
[2020-10-10] MEDS ORDERED: MORPHINE SULFATE 4 MG/ML CPJ (NOT FOR IM USE) IV PRN (07:30)
[2020-10-10] MEDS ORDERED: HYDROCODONE/ACETAMINOPHEN 5/325MG TABLET PO PRN (07:30)
[2020-10-10] MEDS ORDERED: CEFAZOLIN SODIUM 1000MG/VIAL ONE (07:48)
[2020-10-10] MEDS ORDERED: FENTANYL CITRATE/PF 50MCG/ML 2ML VIAL ONE ×2 (07:48→09:29)
[2020-10-10] MEDS ORDERED: GLYCOPYRROLATE 0.2 MG/ML 2ML VIAL ONE ×2 (08:22→10:20)
[2020-10-10] MEDS ORDERED: HYDRALAZINE 20MG/ML VIAL ONE (08:29)
[2020-10-10] MEDS ORDERED: PHENYLEPHRINE HCL 10 MG/ML 1ML (IV VIAL) IV ONE (08:44)
[2020-10-10] MEDS ORDERED: HYDROMORPHONE HCL/PF 2MG/ML CPJ IV PRN (09:00)
[2020-10-10] MEDS ORDERED: NEOSTIGMINE METHYLSULFATE 1MG/ML 10 ML VIAL ONE (09:04)
[2020-10-10 09:37] LABS: CLARITY URINE CLOUDY (CLEAR); COLOR URINE YELLOW (YELLOW); KETONES URINE TRACE (NEGATIVE); LEUKOCYTE ESTERASE URINE 3+ (NEGATIVE); NITRITE URINE POSITIVE (NEGATIVE); OCCULT BLOOD URINE NEGATIVE (NEGATIVE); PROTEIN URINE TRACE (NEGATIVE); SPECIFIC GRAVITY URINE 1.014 (1.005-1.030)
[2020-10-10] MEDS: DEXT 5%/LACTATED RINGERS 1,000 ML IV SCH ×3 (13:31→21:26)
[2020-10-10] MEDS ORDERED: CEFAZOLIN SODIUM 1000MG/VIAL IV SCH (14:00)
[2020-10-10] MEDS ORDERED: DEXAMETHASONE 4MG/ML 1ML VIAL IV SCH (14:45)
[2020-10-10] MEDS ORDERED: CEFAZOLIN 1000MG PREMIX 50 ML IV SCH (15:00)
[2020-10-10] MEDS ORDERED: NALOXONE HCL 0.4MG/ML VIAL IV PRN (18:00)
[2020-10-10] MEDS: CEFAZOLIN 1000MG PREMIX 50 ML IV SCH (18:29)
[2020-10-10] MEDS: ATORVASTATIN CALCIUM 10MG TABLET PO SCH (21:00)
[2020-10-11] VITALS (70 sets, daily range): BP systolic 67–171; BP diastolic 35–111
[2020-10-11] MEDS: CEFAZOLIN 1000MG PREMIX 50 ML IV SCH ×3 (01:07→18:26)
[2020-10-11] MEDS: DEXT 5%/LACTATED RINGERS 1,000 ML IV SCH ×3 (05:20→22:41)
[2020-10-11] MEDS ORDERED: PNEUMOCOCCAL 23-VAL P-SAC VAC 0.5 ML IM ONE (09:00)
[2020-10-11] MEDS: AMLODIPINE 2.5MG TABLET PO SCH ×2 (09:00→09:12)
[2020-10-11] MEDS: DULOXETINE HCL 60MG DR CAPSULE PO SCH (09:12)
[2020-10-11] MEDS: FOLIC ACID 1MG TABLET PO SCH (09:12)
[2020-10-11 10:11] LABS: BASOPHILS % 0.4 % (0.0-2.0); EOSINOPHILS % 0.8 % (0.0-5.0); HEMATOCRIT. 28.1 % (36.0-48.0); HEMOGLOBIN. 9.2 g/dL (12.0-16.0); LYMPHOCYTES % 27.2 % (20.0-50.0); MEAN CORPUSCULAR HEMOGLOBIN 29.9 pg (28.0-32.0); MEAN CORPUSCULAR VOLUME 91.9 fL (81.0-99.0); MEAN PLATELET VOLUME 9.5 fl (7.4-10.4); MONOCYTES % 14.4 % (2.0-8.0); NEUTROPHILS % 57.2 % (40.0-76.0); PLATELET 145 x1000/uL (130-400); RED BLOOD CELL COUNT 3.06 mill/uL (4.2-5.4); RED CELL DISTRIBUTION WIDTH 15.5 % (11.6-14.6)
[2020-10-11 10:14] LABS: CHLORIDE 113 mEq/L (98-107)
[2020-10-11] MEDS: PIPERACILLIN/TAZOBACTAM 3.375 G in DEXTROSE 5% WATER 50 ML IV SCH (21:21)
[2020-10-11] MEDS: ATORVASTATIN CALCIUM 10MG TABLET PO SCH (21:21)
[2020-10-12] VITALS (30 sets, daily range): BP systolic -8–161; BP diastolic -10–112
[2020-10-12 05:55] LABS: BASOPHILS % 0.5 % (0.0-2.0); EOSINOPHILS % 2.9 % (0.0-5.0); HEMATOCRIT. 27.5 % (36.0-48.0); HEMOGLOBIN. 9.2 g/dL (12.0-16.0); MEAN CORPUSCULAR VOLUME 89.7 fL (81.0-99.0); MEAN PLATELET VOLUME 9.7 fl (7.4-10.4); MONOCYTES % 14.6 % (2.0-8.0); PLATELET 145 x1000/uL (130-400); RED BLOOD CELL COUNT 3.06 mill/uL (4.2-5.4); RED CELL DISTRIBUTION WIDTH 15.3 % (11.6-14.6)
[2020-10-12] MEDS: PIPERACILLIN/TAZOBACTAM 3.375 G in DEXTROSE 5% WATER 50 ML IV SCH ×2 (06:01→14:42)
[2020-10-12 06:02] LABS: CHLORIDE 109 mEq/L (98-107)
[2020-10-12] MEDS: FOLIC ACID 1MG TABLET PO SCH (08:29)
[2020-10-12] MEDS: AMLODIPINE 2.5MG TABLET PO SCH (08:29)
[2020-10-12] MEDS: DEXT 5%/LACTATED RINGERS 1,000 ML IV SCH ×3 (08:29→23:36)
[2020-10-12] MEDS: DULOXETINE HCL 60MG DR CAPSULE PO SCH (08:29)
[2020-10-12] MEDS: AMPICILLIN 1,000 MG in SODIUM CHLORIDE 0.9% 50 ML IV SCH ×2 (16:49→23:37)
[2020-10-12] MEDS: ATORVASTATIN CALCIUM 10MG TABLET PO SCH (21:35)
[2020-10-13 04:00] VITALS: BP 159/88
[2020-10-13] MEDS: AMPICILLIN 1,000 MG in SODIUM CHLORIDE 0.9% 50 ML IV SCH ×3 (05:50→17:40)
[2020-10-13 07:28] LABS: BASOPHILS % 0.6 % (0.0-2.0); HEMATOCRIT. 28.1 % (36.0-48.0); HEMOGLOBIN. 9.2 g/dL (12.0-16.0); LYMPHOCYTES % 30.7 % (20.0-50.0); MEAN CORPUSCULAR HEMOGLOBIN 29.7 pg (28.0-32.0); MEAN CORPUSCULAR VOLUME 90.9 fL (81.0-99.0); MEAN PLATELET VOLUME 9.3 fl (7.4-10.4); MONOCYTES % 14.1 % (2.0-8.0); NEUTROPHILS % 50.6 % (40.0-76.0); PLATELET 159 x1000/uL (130-400); RED BLOOD CELL COUNT 3.09 mill/uL (4.2-5.4)
[2020-10-13 07:42] LABS: CHLORIDE 106 mEq/L (98-107)
[2020-10-13 08:00] VITALS: BP 143/91
[2020-10-13] MEDS: AMLODIPINE 2.5MG TABLET PO SCH (09:04)
[2020-10-13] MEDS: FOLIC ACID 1MG TABLET PO SCH (09:04)
[2020-10-13] MEDS: DEXT 5%/LACTATED RINGERS 1,000 ML IV SCH ×2 (09:04→15:11)
[2020-10-13] MEDS: DULOXETINE HCL 60MG DR CAPSULE PO SCH (10:26)
[2020-10-13] MEDS ORDERED: POTASSIUM CHLORIDE 20MEQ TABLET SR PO NR (11:15)
[2020-10-13 11:50] VITALS: BP 193/98
[2020-10-13] MEDS: LACTULOSE 20G/30ML UDC PO SCH ×3 (12:46→17:40)
[2020-10-13] MEDS ORDERED: POTASSIUM CHLORIDE INJ 40 MEQ in DEXT 5% WATER 250 ML IV NR (14:00)
[2020-10-13 15:54] VITALS: BP 176/92
[2020-10-13] MEDS: DOCUSATE SODIUM 100MG CAPSULE PO SCH (17:40)
[2020-10-13] MEDS: ATORVASTATIN CALCIUM 10MG TABLET PO SCH (20:26)
[2020-10-13] MEDS ORDERED: POLYETHYLENE GLYCOL 3350 (17GM) 1 DOSE PACK PO SCH (21:00)
[2020-10-14] VITALS: BP 138/82
[2020-10-14] MEDS: AMPICILLIN 1,000 MG in SODIUM CHLORIDE 0.9% 50 ML IV SCH ×4 (00:47→17:00)
[2020-10-14 04:13] VITALS: BP 150/80
[2020-10-14] MEDS ORDERED: HYDRALAZINE 20MG/ML VIAL IV PRN (05:42)
[2020-10-14 08:00] VITALS: BP 107/69
[2020-10-14] MEDS: AMLODIPINE 2.5MG TABLET PO SCH (09:00)
[2020-10-14] MEDS: DEXT 5%/LACTATED RINGERS 1,000 ML IV SCH (09:38)
[2020-10-14] MEDS: DULOXETINE HCL 60MG DR CAPSULE PO SCH (09:51)
[2020-10-14] MEDS: FOLIC ACID 1MG TABLET PO SCH (09:51)
[2020-10-14] MEDS: DOCUSATE SODIUM 100MG CAPSULE PO SCH ×2 (09:51→17:01)
[2020-10-14 10:00] VITALS: BP 109/64
[2020-10-14 12:00] VITALS: BP 157/83
[2020-10-14] MEDS ORDERED: BISACODYL 10MG SUPP PR NR (15:00)
[2020-10-14] MEDS ORDERED: LACTULOSE 20G/30ML UDC PO SCH (15:00)
[2020-10-16] MEDS ORDERED: ERGOCALCIFEROL 50000UNITS CAPSULE PO SCH ×2 (09:00)
== END 2020-10-14 17:29 | DRG 854 ==
LOC: OR 05:39 → MICUNO 05:40 → 5EST 10-12 14:02
PROVIDERS: ADMIT Internal Medicine; ATTEND Neurological Surgery
PROC: 0SG0071 Fusion of Lumbar Vertebral Joint with Autologous Tissue Substitute, Posterior Approach, Posterior Column, Open Approach (ICD-10-PCS; principal; 2020-10-10)
PROC: 01NB0ZZ Release Lumbar Nerve, Open Approach (ICD-10-PCS; 2020-10-10)
PROC: 4A11X4G Monitoring of Peripheral Nervous Electrical Activity, Intraoperative, External Approach (ICD-10-PCS; 2020-10-10)
DX: A41.51 Sepsis due to Escherichia coli [E. coli] (principal); K59.2 Neurogenic bowel, not elsewhere classified; N39.0 Urinary tract infection, site not specified; G82.20 Paraplegia, unspecified; M48.061 Spinal stenosis, lumbar region without neurogenic claudication; M43.16 Spondylolisthesis, lumbar region; N31.9 Neuromuscular dysfunction of bladder, unspecified; D64.9 Anemia, unspecified; E87.6 Hypokalemia; I10 Essential (primary) hypertension; R26.9 Unspecified abnormalities of gait and mobility; M47.26 Other spondylosis with radiculopathy, lumbar region; R53.81 Other malaise; B95.4 Other streptococcus as the cause of diseases classified elsewhere; B95.2 Enterococcus as the cause of diseases classified elsewhere; Z98.1 Arthrodesis status; Z87.891 Personal history of nicotine dependence; Z79.899 Other long term (current) drug therapy; Z79.82 Long term (current) use of aspirin; Z82.49 Family history of ischemic heart disease and other diseases of the circulatory system
CPT/HCPCS: 36415; 72100; 76000; 80048; 81003; 85025; 86850; 86900; 87077; 87186; 87426; 93005; 93970; 95863; 95925; 95926; 95928; 95929; 97110; 97162; 97166; 97530; C1713; J0290; J0360; J0690; J1580; J2270; J2370; J2405; J2543; J2704; J2710; J3010; J3480; J3490; J7060; J7121; C1762

== ENCOUNTER 2020-10-14 17:20 | Inpatient (IN) | payer MEDICARE, MEDICAID ==
[~2020-10-14] VITALS: Ht 167.6 cm; Wt 83.0 kg
[2020-10-14 17:30] VITALS: BP 182/104
[2020-10-14] MEDS ORDERED: LACTULOSE 20G/30ML UDC PO PRN (19:30)
[2020-10-14] MEDS ORDERED: HYDRALAZINE 20MG/ML VIAL IV PRN (19:30)
[2020-10-14] MEDS ORDERED: ONDANSETRON HCL 4MG/2ML INJ IV PRN (19:30)
[2020-10-14] MEDS ORDERED: HYDRALAZINE 10 MG in SODIUM CHLORIDE 0.9% 49.5 ML IV PRN (20:00)
[2020-10-14 20:09] VITALS: BP 182/104
[2020-10-14] MEDS: ATORVASTATIN CALCIUM 10MG TABLET PO SCH (21:25)
[2020-10-14] MEDS: CLONIDINE 0.1MG TABLET PO PRN (21:36)
[2020-10-15] MEDS: AMPICILLIN 1,000 MG in SODIUM CHLORIDE 0.9% 50 ML IV SCH ×5 (00:02→18:00)
[2020-10-15 05:57] LABS: BASOPHILS % 0.8 % (0.0-2.0); EOSINOPHILS % 5.4 % (0.0-5.0); HEMATOCRIT. 30.2 % (36.0-48.0); HEMOGLOBIN. 9.9 g/dL (12.0-16.0); LYMPHOCYTES % 25.7 % (20.0-50.0); MEAN CORPUSCULAR HEMOGLOBIN 29.7 pg (28.0-32.0); MEAN CORPUSCULAR VOLUME 90.7 fL (81.0-99.0); MEAN PLATELET VOLUME 9.1 fl (7.4-10.4); NEUTROPHILS % 54.1 % (40.0-76.0); PLATELET 180 x1000/uL (130-400); RED BLOOD CELL COUNT 3.33 mill/uL (4.2-5.4); RED CELL DISTRIBUTION WIDTH 14.7 % (11.6-14.6)
[2020-10-15 05:59] LABS: CHLORIDE 107 mEq/L (98-107)
[2020-10-15] MEDS: CLONIDINE 0.1MG TABLET PO PRN (06:44)
[2020-10-15] MEDS: HYDROCODONE/ACETAMINOPHEN 5/325MG TABLET PO PRN (07:22)
[2020-10-15 08:00] VITALS: BP 91/51
[2020-10-15] MEDS: AMLODIPINE 2.5MG TABLET PO SCH (09:00)
[2020-10-15] MEDS: POLYETHYLENE GLYCOL 3350 (17GM) 1 DOSE PACK PO SCH (09:00)
[2020-10-15] MEDS: DOCUSATE SODIUM 100MG CAPSULE PO SCH ×2 (09:34→17:00)
[2020-10-15] MEDS: FOLIC ACID 1MG TABLET PO SCH (09:35)
[2020-10-15] MEDS: DULOXETINE HCL 60MG DR CAPSULE PO SCH (09:36)
[2020-10-15] MEDS ORDERED: POTASSIUM CHLORIDE 20MEQ TABLET SR PO NR (14:00)
[2020-10-15] MEDS ORDERED: NALOXONE HCL 0.4MG/ML VIAL IV PRN (16:30)
[2020-10-15 20:00] VITALS: BP 148/67
[2020-10-15] MEDS: ATORVASTATIN CALCIUM 10MG TABLET PO SCH (21:17)
[2020-10-16 07:13] LABS: BASOPHILS % 0.9 % (0.0-2.0); EOSINOPHILS % 6.8 % (0.0-5.0); HEMATOCRIT. 28.7 % (36.0-48.0); HEMOGLOBIN. 9.4 g/dL (12.0-16.0); LYMPHOCYTES % 26.9 % (20.0-50.0); MEAN CORPUSCULAR HEMOGLOBIN 29.6 pg (28.0-32.0); MEAN CORPUSCULAR VOLUME 90.4 fL (81.0-99.0); MEAN PLATELET VOLUME 9.1 fl (7.4-10.4); MONOCYTES % 13.1 % (2.0-8.0); NEUTROPHILS % 52.3 % (40.0-76.0); PLATELET 217 x1000/uL (130-400); RED BLOOD CELL COUNT 3.18 mill/uL (4.2-5.4); RED CELL DISTRIBUTION WIDTH 14.7 % (11.6-14.6)
[2020-10-16 07:32] LABS: CHLORIDE 107 mEq/L (98-107)
[2020-10-16 07:42] LABS: TOTAL IRON BINDING CAPACITY 232 ug/dL (250-450)
[2020-10-16 07:46] LABS: FERRITIN 51 ng/mL (10-291)
[2020-10-16 07:47] LABS: FOLIC ACID (FOLATE) SERUM >20 ng/mL ng/mL (>5.38)
[2020-10-16 07:59] LABS: VITAMIN B12 SERUM 375 pg/mL (211-911)
[2020-10-16 08:00] VITALS: BP_SYST 125; BP_SYST 154; BP_DIAS 66; BP_DIAS 84
[2020-10-16] MEDS: POLYETHYLENE GLYCOL 3350 (17GM) 1 DOSE PACK PO SCH (08:19)
[2020-10-16] MEDS: DOCUSATE SODIUM 100MG CAPSULE PO SCH ×2 (08:20→16:31)
[2020-10-16] MEDS: FOLIC ACID 1MG TABLET PO SCH (08:20)
[2020-10-16] MEDS: DULOXETINE HCL 60MG DR CAPSULE PO SCH (08:20)
[2020-10-16] MEDS: AMLODIPINE 2.5MG TABLET PO SCH (08:20)
[2020-10-16] MEDS ORDERED: ERGOCALCIFEROL 50000UNITS CAPSULE PO SCH (09:00)
[2020-10-16] MEDS: FERROUS SULFATE 325MG TABLET PO SCH ×2 (12:45→16:31)
[2020-10-16] MEDS: ASCORBIC ACID 500 MG TABLET PO SCH (12:45)
[2020-10-16] MEDS: CYANOCOBALAMIN 1000MCG/ML VIAL IM SCH (12:45)
[2020-10-16 20:00] VITALS: BP 133/79
[2020-10-16] MEDS: ATORVASTATIN CALCIUM 10MG TABLET PO SCH (20:48)
[2020-10-17 08:00] VITALS: BP 162/90
[2020-10-17] MEDS: DOCUSATE SODIUM 100MG CAPSULE PO SCH ×2 (08:41→17:29)
[2020-10-17] MEDS: CYANOCOBALAMIN 1000MCG/ML VIAL IM SCH (08:41)
[2020-10-17] MEDS: FOLIC ACID 1MG TABLET PO SCH (08:41)
[2020-10-17] MEDS: ASCORBIC ACID 500 MG TABLET PO SCH (08:41)
[2020-10-17] MEDS: POLYETHYLENE GLYCOL 3350 (17GM) 1 DOSE PACK PO SCH (08:41)
[2020-10-17] MEDS: FERROUS SULFATE 325MG TABLET PO SCH ×3 (08:41→17:29)
[2020-10-17] MEDS: DULOXETINE HCL 60MG DR CAPSULE PO SCH (08:41)
[2020-10-17] MEDS: AMLODIPINE 2.5MG TABLET PO SCH (08:42)
[2020-10-17] MEDS: HYDROCODONE/ACETAMINOPHEN 5/325MG TABLET PO PRN (08:43)
[2020-10-17] MEDS: CLONIDINE 0.1MG TABLET PO PRN (08:44)
[2020-10-17 20:00] VITALS: BP 130/74
[2020-10-17] MEDS: ATORVASTATIN CALCIUM 10MG TABLET PO SCH (20:14)
[2020-10-18 08:00] VITALS: BP 122/74
[2020-10-18] MEDS: ASCORBIC ACID 500 MG TABLET PO SCH (08:14)
[2020-10-18] MEDS: CYANOCOBALAMIN 1000MCG/ML VIAL IM SCH (08:14)
[2020-10-18] MEDS: AMLODIPINE 2.5MG TABLET PO SCH (08:15)
[2020-10-18] MEDS: HYDROCODONE/ACETAMINOPHEN 5/325MG TABLET PO PRN (08:15)
[2020-10-18] MEDS: DULOXETINE HCL 60MG DR CAPSULE PO SCH (08:15)
[2020-10-18] MEDS: DOCUSATE SODIUM 100MG CAPSULE PO SCH ×2 (08:16→17:52)
[2020-10-18] MEDS: FERROUS SULFATE 325MG TABLET PO SCH ×3 (08:16→17:52)
[2020-10-18] MEDS: POLYETHYLENE GLYCOL 3350 (17GM) 1 DOSE PACK PO SCH (08:16)
[2020-10-18] MEDS: FOLIC ACID 1MG TABLET PO SCH (08:16)
[2020-10-18 20:00] VITALS: BP 138/82
[2020-10-18] MEDS: ATORVASTATIN CALCIUM 10MG TABLET PO SCH (21:53)
[2020-10-19 08:20] VITALS: BP 124/76
[2020-10-19] MEDS: DOCUSATE SODIUM 100MG CAPSULE PO SCH ×2 (09:00→16:39)
[2020-10-19] MEDS: POLYETHYLENE GLYCOL 3350 (17GM) 1 DOSE PACK PO SCH (09:00)
[2020-10-19] MEDS: ASCORBIC ACID 500 MG TABLET PO SCH (09:10)
[2020-10-19] MEDS: FOLIC ACID 1MG TABLET PO SCH (09:10)
[2020-10-19] MEDS: FERROUS SULFATE 325MG TABLET PO SCH ×3 (09:10→16:39)
[2020-10-19] MEDS: AMLODIPINE 2.5MG TABLET PO SCH (09:10)
[2020-10-19] MEDS: DULOXETINE HCL 60MG DR CAPSULE PO SCH (09:10)
[2020-10-19] MEDS: CYANOCOBALAMIN 1000MCG/ML VIAL IM SCH (09:11)
[2020-10-19 12:08] LABS: CHLORIDE 108 mEq/L (98-107)
[2020-10-19 14:03] LABS: BASOPHILS % 0.9 % (0.0-2.0); EOSINOPHILS % 5.1 % (0.0-5.0); HEMATOCRIT. 30.3 % (36.0-48.0); HEMOGLOBIN. 9.9 g/dL (12.0-16.0); LYMPHOCYTES % 21.7 % (20.0-50.0); MEAN CORPUSCULAR HEMOGLOBIN 29.3 pg (28.0-32.0); MEAN CORPUSCULAR VOLUME 89.8 fL (81.0-99.0); MEAN PLATELET VOLUME 8.4 fl (7.4-10.4); MONOCYTES % 9.8 % (2.0-8.0); NEUTROPHILS % 62.5 % (40.0-76.0); PLATELET 308 x1000/uL (130-400); RED BLOOD CELL COUNT 3.37 mill/uL (4.2-5.4)
[2020-10-19 20:00] VITALS: BP 130/64
[2020-10-19] MEDS: ATORVASTATIN CALCIUM 10MG TABLET PO SCH (21:47)
[2020-10-20 08:00] VITALS: BP 135/84
[2020-10-20] MEDS: CYANOCOBALAMIN 1000MCG/ML VIAL IM SCH (10:00)
[2020-10-20] MEDS: FOLIC ACID 1MG TABLET PO SCH (10:00)
[2020-10-20] MEDS: DULOXETINE HCL 60MG DR CAPSULE PO SCH (10:00)
[2020-10-20] MEDS: DOCUSATE SODIUM 100MG CAPSULE PO SCH ×2 (10:01→17:56)
[2020-10-20] MEDS: POLYETHYLENE GLYCOL 3350 (17GM) 1 DOSE PACK PO SCH (10:01)
[2020-10-20] MEDS: ASCORBIC ACID 500 MG TABLET PO SCH (10:01)
[2020-10-20] MEDS: FERROUS SULFATE 325MG TABLET PO SCH ×3 (10:01→17:56)
[2020-10-20] MEDS: AMLODIPINE 2.5MG TABLET PO SCH (10:01)
[2020-10-20] MEDS: LACTULOSE 20G/30ML UDC PO SCH ×2 (17:57→21:06)
[2020-10-20] MEDS ORDERED: NALOXONE HCL 0.4MG/ML VIAL IV PRN (19:30)
[2020-10-20 20:00] VITALS: BP 108/75
[2020-10-20] MEDS: ATORVASTATIN CALCIUM 10MG TABLET PO SCH (21:06)
[2020-10-21] MEDS: HYDROCODONE/ACETAMINOPHEN 5/325MG TABLET PO PRN ×2 (06:27→13:40)
[2020-10-21] MEDS: CLONIDINE 0.1MG TABLET PO PRN (06:28)
[2020-10-21 06:46] VITALS: BP 151/88
[2020-10-21] MEDS: LACTULOSE 20G/30ML UDC PO SCH (09:00)
[2020-10-21] MEDS: DULOXETINE HCL 60MG DR CAPSULE PO SCH (09:00)
[2020-10-21] MEDS: AMLODIPINE 2.5MG TABLET PO SCH (09:00)
[2020-10-21] MEDS: CYANOCOBALAMIN 1000MCG/ML VIAL IM SCH (11:15)
[2020-10-21] MEDS: DOCUSATE SODIUM 100MG CAPSULE PO SCH ×2 (11:16→17:32)
[2020-10-21] MEDS: FERROUS SULFATE 325MG TABLET PO SCH ×3 (11:17→17:32)
[2020-10-21] MEDS: FOLIC ACID 1MG TABLET PO SCH (11:17)
[2020-10-21] MEDS: POLYETHYLENE GLYCOL 3350 (17GM) 1 DOSE PACK PO SCH (11:18)
[2020-10-21] MEDS: ASCORBIC ACID 500 MG TABLET PO SCH (11:18)
[2020-10-21 14:08] LABS: 25-HYDROXY VITAMIN D3 6.3 ng/mL (.)
[2020-10-21 20:00] VITALS: BP 107/64
[2020-10-21] MEDS: ATORVASTATIN CALCIUM 10MG TABLET PO SCH (20:19)
[2020-10-22 08:32] VITALS: BP 178/63
[2020-10-22] MEDS: DULOXETINE HCL 60MG DR CAPSULE PO SCH (09:42)
[2020-10-22] MEDS: AMLODIPINE 2.5MG TABLET PO SCH (09:42)
[2020-10-22] MEDS: FERROUS SULFATE 325MG TABLET PO SCH ×3 (09:42→17:52)
[2020-10-22] MEDS: POLYETHYLENE GLYCOL 3350 (17GM) 1 DOSE PACK PO SCH (09:42)
[2020-10-22] MEDS: ASCORBIC ACID 500 MG TABLET PO SCH (09:43)
[2020-10-22] MEDS: DOCUSATE SODIUM 100MG CAPSULE PO SCH ×2 (09:43→17:52)
[2020-10-22] MEDS: FOLIC ACID 1MG TABLET PO SCH (09:43)
[2020-10-22] MEDS: CYANOCOBALAMIN 1000MCG/ML VIAL IM SCH (09:47)
[2020-10-22 20:00] VITALS: BP 113/78
[2020-10-22] MEDS: ATORVASTATIN CALCIUM 10MG TABLET PO SCH (20:14)
[2020-10-23 06:40] LABS: CHLORIDE 107 mEq/L (98-107)
[2020-10-23 06:57] LABS: BASOPHILS % 0.9 % (0.0-2.0); EOSINOPHILS % 5.6 % (0.0-5.0); HEMATOCRIT. 31.2 % (36.0-48.0); HEMOGLOBIN. 10.1 g/dL (12.0-16.0); MEAN CORPUSCULAR HEMOGLOBIN 29.3 pg (28.0-32.0); MEAN CORPUSCULAR VOLUME 90.2 fL (81.0-99.0); MEAN PLATELET VOLUME 8.1 fl (7.4-10.4); MONOCYTES % 9.6 % (2.0-8.0); NEUTROPHILS % 46.9 % (40.0-76.0); PLATELET 388 x1000/uL (130-400); RED BLOOD CELL COUNT 3.46 mill/uL (4.2-5.4)
[2020-10-23 07:26] VITALS: BP 137/80
[2020-10-23] MEDS: DOCUSATE SODIUM 100MG CAPSULE PO SCH ×2 (10:25→14:51)
[2020-10-23] MEDS: FOLIC ACID 1MG TABLET PO SCH (10:26)
[2020-10-23] MEDS: FERROUS SULFATE 325MG TABLET PO SCH ×3 (10:26→18:04)
[2020-10-23] MEDS: DULOXETINE HCL 60MG DR CAPSULE PO SCH (10:26)
[2020-10-23] MEDS: AMLODIPINE 2.5MG TABLET PO SCH (10:27)
[2020-10-23] MEDS: POLYETHYLENE GLYCOL 3350 (17GM) 1 DOSE PACK PO SCH (10:27)
[2020-10-23] MEDS: ASCORBIC ACID 500 MG TABLET PO SCH (10:27)
[2020-10-23] MEDS ORDERED: LACTULOSE 20G/30ML UDC PO PRN (11:00)
[2020-10-23 20:00] VITALS: BP 134/91
[2020-10-23] MEDS: ATORVASTATIN CALCIUM 10MG TABLET PO SCH (21:23)
[2020-10-24 07:58] VITALS: BP 112/74
[2020-10-24] MEDS: DOCUSATE SODIUM 100MG CAPSULE PO SCH ×2 (08:27→16:47)
[2020-10-24] MEDS: FERROUS SULFATE 325MG TABLET PO SCH ×3 (08:27→16:47)
[2020-10-24] MEDS: AMLODIPINE 2.5MG TABLET PO SCH (08:28)
[2020-10-24] MEDS: DULOXETINE HCL 60MG DR CAPSULE PO SCH (08:28)
[2020-10-24] MEDS: ASCORBIC ACID 500 MG TABLET PO SCH (08:28)
[2020-10-24] MEDS: POLYETHYLENE GLYCOL 3350 (17GM) 1 DOSE PACK PO SCH (08:28)
[2020-10-24] MEDS: FOLIC ACID 1MG TABLET PO SCH (08:28)
[2020-10-24 20:00] VITALS: BP 119/68
[2020-10-24] MEDS: ATORVASTATIN CALCIUM 10MG TABLET PO SCH (20:52)
[2020-10-25 07:59] VITALS: BP 113/74
[2020-10-25] MEDS: FERROUS SULFATE 325MG TABLET PO SCH ×3 (08:59→16:54)
[2020-10-25] MEDS: DULOXETINE HCL 60MG DR CAPSULE PO SCH (08:59)
[2020-10-25] MEDS: FOLIC ACID 1MG TABLET PO SCH (08:59)
[2020-10-25] MEDS: DOCUSATE SODIUM 100MG CAPSULE PO SCH ×2 (08:59→16:54)
[2020-10-25] MEDS: POLYETHYLENE GLYCOL 3350 (17GM) 1 DOSE PACK PO SCH ×2 (08:59→09:00)
[2020-10-25] MEDS: AMLODIPINE 2.5MG TABLET PO SCH (09:00)
[2020-10-25] MEDS: ASCORBIC ACID 500 MG TABLET PO SCH (09:00)
[2020-10-25 20:00] VITALS: BP 122/82
[2020-10-25] MEDS: ATORVASTATIN CALCIUM 10MG TABLET PO SCH (21:13)
[2020-10-26] MEDS: ASCORBIC ACID 500 MG TABLET PO SCH (08:03)
[2020-10-26] MEDS: DULOXETINE HCL 60MG DR CAPSULE PO SCH (08:04)
[2020-10-26] MEDS: FOLIC ACID 1MG TABLET PO SCH (08:04)
[2020-10-26] MEDS: AMLODIPINE 2.5MG TABLET PO SCH (08:04)
[2020-10-26] MEDS: DOCUSATE SODIUM 100MG CAPSULE PO SCH ×2 (08:04→17:00)
[2020-10-26] MEDS: CLONIDINE 0.1MG TABLET PO PRN (08:04)
[2020-10-26] MEDS: FERROUS SULFATE 325MG TABLET PO SCH ×3 (08:04→17:02)
[2020-10-26] MEDS: POLYETHYLENE GLYCOL 3350 (17GM) 1 DOSE PACK PO SCH (08:05)
[2020-10-26 08:29] VITALS: BP 166/87
[2020-10-26] MEDS ORDERED: NALOXONE HCL 0.4MG/ML VIAL IV PRN (08:30)
[2020-10-26 20:00] VITALS: BP 109/69
[2020-10-26] MEDS: ATORVASTATIN CALCIUM 10MG TABLET PO SCH (20:27)
[2020-10-27] MEDS: DOCUSATE SODIUM 100MG CAPSULE PO SCH ×2 (08:18→17:00)
[2020-10-27] MEDS: ASCORBIC ACID 500 MG TABLET PO SCH (08:19)
[2020-10-27] MEDS: FERROUS SULFATE 325MG TABLET PO SCH (08:19)
[2020-10-27] MEDS: FOLIC ACID 1MG TABLET PO SCH (08:19)
[2020-10-27] MEDS: HYDROCODONE/ACETAMINOPHEN 5/325MG TABLET PO PRN (08:19)
[2020-10-27] MEDS: AMLODIPINE 2.5MG TABLET PO SCH (08:21)
[2020-10-27] MEDS: POLYETHYLENE GLYCOL 3350 (17GM) 1 DOSE PACK PO SCH (08:22)
[2020-10-27 08:26] VITALS: BP 109/74
[2020-10-27] MEDS: DULOXETINE HCL 60MG DR CAPSULE PO SCH (10:15)
[2020-10-27] MEDS ORDERED: IRON SUCROSE COMPLEX 200 MG in SODIUM CHLORIDE 0.9% 100 ML IV SCH ×2 (13:30→20:00)
[2020-10-27 20:00] VITALS: BP 131/75
[2020-10-27] MEDS: ATORVASTATIN CALCIUM 10MG TABLET PO SCH (20:21)
[2020-10-28] MEDS: HYDROCODONE/ACETAMINOPHEN 5/325MG TABLET PO PRN (06:29)
[2020-10-28 08:00] VITALS: BP 139/67
[2020-10-28] MEDS: POLYETHYLENE GLYCOL 3350 (17GM) 1 DOSE PACK PO SCH ×2 (09:00→09:05)
[2020-10-28] MEDS: DULOXETINE HCL 60MG DR CAPSULE PO SCH (09:05)
[2020-10-28] MEDS: DOCUSATE SODIUM 100MG CAPSULE PO SCH (09:05)
[2020-10-28] MEDS: FOLIC ACID 1MG TABLET PO SCH (09:05)
[2020-10-28] MEDS: AMLODIPINE 2.5MG TABLET PO SCH (09:05)
[2020-10-28] MEDS: ASCORBIC ACID 500 MG TABLET PO SCH (09:05)
[2020-10-28 12:47] VITALS: BP 139/67
[2020-10-29] MEDS ORDERED: CYANOCOBALAMIN 1000MCG/ML VIAL IM SCH (09:00)
[2020-11-11] MEDS ORDERED: POLY17PO3 MT (12:40)
[2020-11-11] MEDS ORDERED: ATOR40TA70 MT (12:40)
== END 2020-10-28 14:23 | disposition home health service (06) | DRG 552 ==
PROVIDERS: ADMIT Physical Medicine & Rehabilitation Spinal Cord Injury Medicine; ATTEND Internal Medicine
DX: M48.061 Spinal stenosis, lumbar region without neurogenic claudication (principal); K59.2 Neurogenic bowel, not elsewhere classified; N39.0 Urinary tract infection, site not specified; N31.9 Neuromuscular dysfunction of bladder, unspecified; R53.81 Other malaise; R26.9 Unspecified abnormalities of gait and mobility; I10 Essential (primary) hypertension; E87.6 Hypokalemia; F39 Unspecified mood [affective] disorder; M47.26 Other spondylosis with radiculopathy, lumbar region; D50.9 Iron deficiency anemia, unspecified; Z82.49 Family history of ischemic heart disease and other diseases of the circulatory system; Z87.891 Personal history of nicotine dependence
CPT/HCPCS: 36415; 80048; 80053; 82306; 82607; 82728; 82746; 83540; 83550; 84134; 84443; 85025; 93970; 97110; 97112; 97116; 97162; 97166; 97530; 97535; A6261; C1893; J0290; J3420; J7040; J7050

== ENCOUNTER → 2022-01-05 | Outpatient (CLI) | payer MEDICARE, MEDICAID ==
[~2022-01-05] MED LIST changes: -ASPI-1497 PO; -ATOR10TA PO; +ATOR40TA70 MT; +ERGO1250 PO; -ERGO500013 PO; -NAPR500T7 PO; +POLY17PO3 MT
== END | disposition home or self-care (01) ==
LOC: MRI 09:40
PROVIDERS: ATTEND Neurological Surgery
DX: M47.816 Spondylosis without myelopathy or radiculopathy, lumbar region (principal); M48.061 Spinal stenosis, lumbar region without neurogenic claudication; M47.815 Spondylosis without myelopathy or radiculopathy, thoracolumbar region; M54.51 Vertebrogenic low back pain; M50.00 Cervical disc disorder with myelopathy, unspecified cervical region; M48.07 Spinal stenosis, lumbosacral region; M51.37 Other intervertebral disc degeneration, lumbosacral region; M51.35 Other intervertebral disc degeneration, thoracolumbar region; M48.02 Spinal stenosis, cervical region; M48.03 Spinal stenosis, cervicothoracic region; M54.50 Low back pain, unspecified
CPT/HCPCS: 72141; 72148